=== PATIENT | male | born 1970 | race African-American/Black ===

== ENCOUNTER 2022-04-14 15:12 | Emergency (ER) | payer MEDICAID, OTHER ==
[~2022-04-14] VITALS: Ht 180.3 cm; Wt 107.0 kg
[2022-04-14 15:35] VITALS: BP 156/89
[2022-04-14] MEDS ORDERED: CLINDAMYCIN HCL 150MG CAPSULE PO SCH (19:30)
[2022-04-14] MEDS ORDERED: LEVOFLOXACIN 250MG TABLET PO ONE (19:30)
[2022-04-14] MEDS ORDERED: CIPR500T5 MT (21:24)
[2022-04-14] MEDS ORDERED: CLIN-194 MT (21:24)
== END 2022-04-14 22:35 | disposition home or self-care (01) ==
LOC: ER 15:12
DX: E11.9 Type 2 diabetes mellitus without complications (principal); T25.221A Burn of second degree of right foot, initial encounter; T31.0 Burns involving less than 10% of body surface; X08.8XXA Exposure to other specified smoke, fire and flames, initial encounter; Y93.89 Activity, other specified; Y92.89 Other specified places as the place of occurrence of the external cause; Y99.8 Other external cause status; J45.909 Unspecified asthma, uncomplicated
CPT/HCPCS: 73630; 99283

== ENCOUNTER 2022-05-15 11:36 | Inpatient (IN) | payer OTHER ==
[~2022-05-15] VITALS: Ht 180.3 cm; Wt 113.4 kg
[~2022-05-15 11:36] MED LIST: CIPR500T5 MT; CLIN-194 MT
[2022-05-15 12:35] LABS: BASOPHILS % 0.4 % (0.0-2.0); CHLORIDE 111 mEq/L (98-107); EOSINOPHILS % 0.4 % (0.0-5.0); HEMOGLOBIN. 11.1 g/dL (14.0-18.0); LYMPHOCYTES % 16.9 % (20.0-50.0); MEAN CORPUSCULAR HEMOGLOBIN 26.3 pg (28.0-32.0); MEAN CORPUSCULAR VOLUME 80.8 fL (80.0-94.0); MEAN PLATELET VOLUME 7.7 fl (7.4-10.4); MONOCYTES % 8.1 % (2.0-8.0); NEUTROPHILS % 74.2 % (40.0-76.0); PLATELET 341 x1000/uL (130-400); RED BLOOD CELL COUNT 4.21 mill/uL (4.7-6.1); RED CELL DISTRIBUTION WIDTH 12.6 % (11.6-14.6)
[2022-05-15 12:41] LABS: C REACTIVE PROTEIN QUANT 4.3 mg/L (0.0-3.0)
[2022-05-15] MEDS ORDERED: VANCOMYCIN 1G PREMIX 200 ML IV ONE (14:00)
[2022-05-15] MEDS ORDERED: CEFTRIAXONE 1 G PREMIX 50 ML IV ONE (14:00)
[2022-05-15] MEDS ORDERED: ONDANSETRON HCL 4MG/2ML INJ IV PRN (18:30)
[2022-05-15] MEDS ORDERED: DEXTROSE 50% WATER 50ML SYRINGE IV PRN (18:30)
[2022-05-15] MEDS ORDERED: ACETAMINOPHEN 325MG TABLET PO PRN (18:30)
[2022-05-15] MEDS: AMLODIPINE 10MG TABLET PO SCH (18:41)
[2022-05-15] MEDS ORDERED: CEFTRIAXONE 1,000 MG in DEXTROSE 5% WATER 50 ML IV SCH (19:00)
[2022-05-15] MEDS: INSULIN LISPRO 100 UNITS/ML SUBCUT SCH (21:00)
[2022-05-15] MEDS: BLOOD SUGAR DIAGNOSTIC STRIP TEST SCH (21:00)
[2022-05-15 21:30] VITALS: BP 149/80
[2022-05-15 22:00] VITALS: BP 149/80
[2022-05-16] VITALS (7 sets, daily range): BP systolic 101–149; BP diastolic 71–82
[2022-05-16] MEDS: VANCOMYCIN 1GM PMX (XELLIA) 200 ML IV SCH ×2 (02:00→15:06)
[2022-05-16] MEDS: BLOOD SUGAR DIAGNOSTIC STRIP TEST SCH ×4 (06:20→21:13)
[2022-05-16] MEDS: INSULIN LISPRO 100 UNITS/ML SUBCUT SCH ×4 (07:50→21:00)
[2022-05-16] MEDS: AMLODIPINE 10MG TABLET PO SCH (08:58)
[2022-05-16] MEDS ORDERED: CEFTRIAXONE 1 G PREMIX 50 ML IV SCH (17:00)
[2022-05-16] MEDS: CEFTRIAXONE 1,000 MG in DEXTROSE 5% WATER 50 ML IV SCH (17:31)
[2022-05-16 21:28] LABS: BASOPHILS % 0.6 % (0.0-2.0); EOSINOPHILS % 0.9 % (0.0-5.0); HEMOGLOBIN. 11.7 g/dL (14.0-18.0); LYMPHOCYTES % 26.8 % (20.0-50.0); MEAN CORPUSCULAR HEMOGLOBIN 26.3 pg (28.0-32.0); MEAN PLATELET VOLUME 7.7 fl (7.4-10.4); MONOCYTES % 6.9 % (2.0-8.0); NEUTROPHILS % 64.8 % (40.0-76.0); PLATELET 383 x1000/uL (130-400); RED BLOOD CELL COUNT 4.44 mill/uL (4.7-6.1); RED CELL DISTRIBUTION WIDTH 12.7 % (11.6-14.6)
[2022-05-16 21:35] LABS: CHLORIDE 107 mEq/L (98-107)
[2022-05-17] VITALS: BP 129/76
[2022-05-17] MEDS: VANCOMYCIN 1GM PMX (XELLIA) 200 ML IV SCH ×2 (02:00→12:28)
[2022-05-17 04:00] VITALS: BP 128/75
[2022-05-17] MEDS: BLOOD SUGAR DIAGNOSTIC STRIP TEST SCH ×4 (06:20→21:28)
[2022-05-17] MEDS: INSULIN LISPRO 100 UNITS/ML SUBCUT SCH ×4 (07:50→21:27)
[2022-05-17 08:00] VITALS: BP 127/76
[2022-05-17] MEDS: AMLODIPINE 10MG TABLET PO SCH (08:27)
[2022-05-17 08:33] LABS: CHLORIDE 107 mEq/L (98-107)
[2022-05-17 12:00] VITALS: BP 107/80
[2022-05-17] MEDS ORDERED: BUPIVACAINE HCL/PF 0.5% (5MG/ML) 10ML ONE (15:21)
[2022-05-17] MEDS ORDERED: LIDOCAINE HCL 1% 50ML VIAL (10MG/ML) ONE (15:21)
[2022-05-17] MEDS ORDERED: PROPOFOL 200MG/20ML VIAL IV ONE (15:40)
[2022-05-17] MEDS ORDERED: MIDAZOLAM HCL 2 MG/2 ML VIAL ONE (15:44)
[2022-05-17] MEDS ORDERED: FENTANYL CITRATE/PF 50MCG/ML 2ML VIAL ONE (15:49)
[2022-05-17] MEDS ORDERED: DEXAMETHASONE 4MG/ML 1ML VIAL ONE (15:52)
[2022-05-17] MEDS ORDERED: ONDANSETRON HCL 4MG/2ML INJ ONE (15:52)
[2022-05-17] MEDS: CEFTRIAXONE 1,000 MG in DEXTROSE 5% WATER 50 ML IV SCH (17:00)
[2022-05-17] MEDS ORDERED: CEFAZOLIN SODIUM 1000MG/VIAL ONE (17:03)
[2022-05-17] MEDS ORDERED: POLYMYXIN B SULFATE 500000 UNITS/VIAL ONE (17:13)
[2022-05-17] MEDS ORDERED: VANCOMYCIN HCL 1 GM/VIAL ONE (17:15)
[2022-05-17] MEDS ORDERED: GENTAMICIN SULF 40MG/ML 2ML VIAL ONE (17:16)
[2022-05-17] MEDS ORDERED: ATROPINE SULFATE 0.4MG/ML VIAL IV PRN (17:30)
[2022-05-17] MEDS ORDERED: SODIUM CHLORIDE 0.9% 1,000 ML IV ONE (17:30)
[2022-05-17] MEDS ORDERED: FENTANYL CITRATE/PF 50MCG/ML 2ML VIAL IV PRN (17:30)
[2022-05-17 20:00] VITALS: BP 126/86
[2022-05-17] MEDS ORDERED: NALOXONE HCL 0.4MG/ML VIAL IV PRN (21:45)
[2022-05-17] MEDS: HYDROCODONE/ACETAMINOPHEN 10/325MG TABLET PO PRN (22:06)
[2022-05-18] VITALS: BP 129/85
[2022-05-18] MEDS: VANCOMYCIN 1GM PMX (XELLIA) 200 ML IV SCH ×2 (00:47→11:26)
[2022-05-18 04:00] VITALS: BP 127/80
[2022-05-18] MEDS: HYDROCODONE/ACETAMINOPHEN 10/325MG TABLET PO PRN (06:15)
[2022-05-18] MEDS: BLOOD SUGAR DIAGNOSTIC STRIP TEST SCH ×2 (07:20→12:20)
[2022-05-18 07:46] LABS: CHLORIDE 107 mEq/L (98-107)
[2022-05-18] MEDS: INSULIN LISPRO 100 UNITS/ML SUBCUT SCH ×2 (07:50→12:50)
[2022-05-18] MEDS: AMLODIPINE 10MG TABLET PO SCH (09:00)
[2022-05-18] MEDS ORDERED: SULF1TAB48 MT (09:54)
[2022-05-18] MEDS ORDERED: AMOX1TAB16 MT (09:54)
[2022-05-18] MEDS ORDERED: HYDR-4001 MT (10:41)
[2022-05-18 10:50] VITALS: BP 110/69
[2022-05-18 13:02] VITALS: BP 119/79
== END 2022-05-18 14:35 | disposition home health service (06) | DRG 314 ==
LOC: ER 11:52 → 6EST 13:48 → ENRESERV 19:08 → ER 21:32
PROVIDERS: ADMIT Internal Medicine; ATTEND Internal Medicine
PROC: 0Y6P0Z1 Detachment at Right 1st Toe, High, Open Approach (ICD-10-PCS; principal; 2022-05-17)
DX: E11.69 Type 2 diabetes mellitus with other specified complication (principal); M86.171 Other acute osteomyelitis, right ankle and foot; E11.40 Type 2 diabetes mellitus with diabetic neuropathy, unspecified; L97.519 Non-pressure chronic ulcer of other part of right foot with unspecified severity; E11.52 Type 2 diabetes mellitus with diabetic peripheral angiopathy with gangrene; I96 Gangrene, not elsewhere classified; L03.115 Cellulitis of right lower limb; E87.8 Other disorders of electrolyte and fluid balance, not elsewhere classified; D64.9 Anemia, unspecified; I10 Essential (primary) hypertension; Z20.822 Contact with and (suspected) exposure to COVID-19; E11.621 Type 2 diabetes mellitus with foot ulcer; J45.909 Unspecified asthma, uncomplicated; Z82.49 Family history of ischemic heart disease and other diseases of the circulatory system
CPT/HCPCS: 36415; 73630; 73721; 80048; 80053; 80202; 82962; 83036; 83605; 84145; 85025; 85651; 86140; 87426; 88311; 97116; 97162; 99285; J0690; J0696; J1100; J1580; J1815; J2250; J2405; J2704; J3010; J3370; J3490; J7030; J7060

== ENCOUNTER 2022-07-13 14:58 | Emergency (ER) | payer OTHER ==
[~2022-07-13] VITALS: Ht 188 cm; Wt 105.0 kg
[~2022-07-13 14:58] MED LIST changes: +AMOX1TAB16 MT; -CIPR500T5 MT; -CLIN-194 MT; +HYDR-4001 MT; +SULF1TAB48 MT
[2022-07-13 15:24] VITALS: BP 151/91
[2022-07-13] MEDS ORDERED: BACITRACIN ZINC OINT UDPKT TOP ONE (19:00)
== END 2022-07-13 19:21 | disposition home or self-care (01) ==
LOC: ER 15:22
DX: M25.571 Pain in right ankle and joints of right foot (principal); J45.909 Unspecified asthma, uncomplicated; E11.9 Type 2 diabetes mellitus without complications; Z48.00 Encounter for change or removal of nonsurgical wound dressing; Z98.890 Other specified postprocedural states
CPT/HCPCS: 99282

== ENCOUNTER 2024-04-13 12:07 | Emergency (ER) | payer MEDICAID ==
[~2024-04-13] VITALS: Ht 180.3 cm; Wt 127.0 kg
[~2024-04-13 12:07] MED LIST changes: -AMOX1TAB16 MT; -HYDR-4001 MT
[2024-04-13 12:14] VITALS: O2SAT 96
[2024-04-13] MEDS: PIPERACILLIN/TAZO 3.375G/50ML 50 ML IV ONE (13:28)
[2024-04-13 14:00] LABS: BASOPHILS % 0.5 % (0.0-2.0); EOSINOPHILS % 1.1 % (0.0-5.0); HEMATOCRIT. 35.2 % (42.0-52.0); HEMOGLOBIN. 11.3 g/dL (14.0-18.0); LYMPHOCYTES % 28.1 % (20.0-50.0); MEAN CORPUSCULAR HGB CONC 32.1 g/dL (31.0-37.0); MEAN PLATELET VOLUME 7.3 fl (7.4-10.4); MONOCYTES % 6.3 % (2.0-8.0); PLATELET 373 x1000/uL (130-400); RED BLOOD CELL COUNT 4.34 mill/uL (4.7-6.1); RED CELL DISTRIBUTION WIDTH 14.1 % (11.6-14.6); WHITE BLOOD COUNT 13.3 x1000/uL (4.5-11.0)
[2024-04-13 14:08] LABS: CHLORIDE 105 mEq/L (98-107); POTASSIUM 4.3 mEq/L (3.5-5.1); SODIUM 137 mEq/L (136-145)
[2024-04-13 14:09] LABS: CARBON DIOXIDE 25 mEq/L (21-32)
[2024-04-13 14:10] LABS: CALCIUM 9.1 mg/dL (8.7-10.4)
[2024-04-13 14:14] LABS: CREATININE 1.3 mg/dL (0.6-1.3); GLUCOSE 251 mg/dL (70-105)
[2024-04-13 14:15] LABS: UREA NITROGEN BLOOD 22 mg/dL (9-23)
[2024-04-13] MEDS ORDERED: DOCUSATE SODIUM 100MG CAPSULE PO PRN (15:30)
[2024-04-13] MEDS ORDERED: DEXTROSE 50% WATER 50ML SYRINGE IV PRN (15:30)
[2024-04-13] MEDS ORDERED: IPRATROPIUM/ALBUTEROL 0.5-3(2.5)MG/3ML NEB HHN PRN (15:30)
[2024-04-13] MEDS ORDERED: CLONIDINE 0.1MG TABLET PO PRN (15:30)
[2024-04-13] MEDS ORDERED: ONDANSETRON HCL 4MG/2ML INJ IV PRN (15:30)
[2024-04-13] MEDS ORDERED: ACETAMINOPHEN 325MG TABLET PO PRN ×2 (15:30)
[2024-04-13] MEDS ORDERED: MAGNESIUM/ALUMINUM HYDROXIDE/SIMETHICONE 30ML UDC PO PRN (15:30)
[2024-04-13] MEDS ORDERED: GUAIFENESIN 200MG/10ML SUGAR FREE UDC PO PRN (15:30)
[2024-04-13] MEDS: CEFTRIAXONE 1GM/50ML 50 ML IV ONE (15:54)
[2024-04-13] MEDS: VANCOMYCIN 2,000 MG in DEXT 5% WATER 500 ML IV NR (16:35)
[2024-04-13] MEDS ORDERED: BLOOD SUGAR DIAGNOSTIC STRIP TEST SCH (17:00)
[2024-04-13] MEDS ORDERED: INSULIN LISPRO 100 UNITS/ML SUBCUT SCH (18:20)
[2024-04-13 18:31] VITALS: BP 153/90; PULSE 90; RESP 14; TEMP 37.05852; O2SAT 96
[2024-04-13] MEDS ORDERED: FAMOTIDINE 20MG TABLET PO SCH (21:00)
[2024-04-13] MEDS ORDERED: ATORVASTATIN CALCIUM 10MG TABLET PO SCH (21:00)
[2024-04-13] MEDS ORDERED: ENOXAPARIN 30MG/0.3ML SYR SUBCUT SCH (21:00)
[2024-04-13] MEDS ORDERED: PIPERACILLIN/TAZO 3.375G/50ML 50 ML IV SCH (22:00)
[2024-04-14] MEDS ORDERED: VANCOMYCIN 1GM/200ML PMX (BAXTER) IV SCH (05:00)
[2024-04-14] MEDS ORDERED: LISINOPRIL 10MG TABLET PO SCH (09:00)
== END 2024-04-13 18:50 | disposition short-term general hospital (02) ==
LOC: ER 12:07 → EDBEDREQTM 15:07 → EDBEDREQ 15:07 → CANBEDREQ 17:06 → ER 18:50
DX: S91.301A Unspecified open wound, right foot, initial encounter (principal); J45.909 Unspecified asthma, uncomplicated; E11.9 Type 2 diabetes mellitus without complications; X58.XXXA Exposure to other specified factors, initial encounter; Y93.89 Activity, other specified; Y92.89 Other specified places as the place of occurrence of the external cause; Y99.8 Other external cause status
CPT/HCPCS: 80048; 83036; 83605; 85025; 87040; 36415; 84145; 71045; 73630; 93970; 96367; 96365; 99291; J2543; J3370; J7060; Z7610 ×3